=== PATIENT | male | born 1945 | race Hispanic/Latino ===

== ENCOUNTER 2020-03-07 08:46 | Emergency (ER) | payer MEDICARE ==
[2020-03-07] MEDS ORDERED: SODIUM CHLORIDE 0.9% 1000ML 1,000 ML IV ONE (09:06)
[2020-03-07 09:31] LABS: BASOPHILS % (AUTO) 0.3 % (0.0-5.0); EOSINOPHILS % (AUTO) 2.7 % (0.0-8.0); HEMATOCRIT 34.1 % (42-54); LYMPHOCYTES % (AUTO) 10.2 % (21.0-51.0); MEAN CORPUSCULAR HEMOGLOBIN 32.8 pg (27.0-33.0); MEAN CORPUSCULAR VOLUME 96.3 fL (79-99); MONOCYTES % (AUTO) 7.6 % (3.0-13.0); NEUTROPHILS % (AUTO) 78.9 % (40.0-77.0); PLATELET COUNT (AUTO) 169 K/uL (130-400); RED BLOOD CELL COUNT(AUTO) 3.54 MIL/uL (4.50-6.20); RED CELL DISTRIBUTION WIDTH 12.5 % (11.0-15.5)
[2020-03-07 09:47] LABS: ALBUMIN 3.4 g/dL (3.5-5.0); BILIRUBIN,TOTAL 0.5 mg/dL (0.2-1.0); CREATININE 1.7 mg/dL (0.5-1.5); POTASSIUM 3.6 mmol/L (3.5-5.1); TOTAL PROTEIN, SERUM 6.5 g/dL (6.0-8.3)
[2020-03-07 09:56] LABS: INR 1.05 (0.85-1.15); PROTHROMBIN TIME 11.3 SEC (9.6-11.6)
[2020-03-07 09:57] LABS: B-TYPE NATRIURETIC PEPTIDE 59 pg/mL (0-100)
[2020-03-07 09:58] LABS: PARTIAL THROMBOPLASTIN TIME 25.3 SEC (26.3-35.5)
[2020-03-07 10:26] LABS: APPEARANCE,URINE CLOUDY (CLEAR); BILIRUBIN,URINE NEGATIVE (NEGATIVE); COLOR,URINE YELLOW (YELLOW); GLUCOSE, URINE (UA) NEGATIVE (NEGATIVE); KETONES,URINE NEGATIVE (NEGATIVE); LEUKOCYTE ESTERASE ,URINE LARGE (NEGATIVE); NITRATE,URINE NEGATIVE (NEGATIVE); OCCULT BLOOD,URINE LARGE (NEGATIVE); PH,URINE 6.5 (5.0-8.0); PROTEIN,URINE 30 mg/dL (NEGATIVE); UROBILINOGEN,URINE 0.2 mg/dL (0.2-1.0)
[2020-03-07 10:47] LABS: BACTERIA,URINE Moderate /HPF (None Seen); SQUAMOUS EPITHELIAL CELL,UR 0-2 /HPF (0-2); WBC,URINE 26-50 /HPF (0-1)
[2020-03-07 10:51] LABS: MAGNESIUM 1.7 mg/dL (1.80-2.40); PHOSPHORUS 3.8 mg/dL (2.5-4.9)
[2020-03-07] MEDS ORDERED: MAGNESIUM OXIDE 400 MG TABLET PO ONE (11:40)
[2020-03-07] MEDS ORDERED: CALCIUM GLUCONATE 1 GM/10 ML VIAL IV ONE (13:05)
[2020-03-07] MEDS ORDERED: DEXTROSE 5%-WATER 50 ML IV ONE (13:06)
== END 2020-03-07 16:23 | disposition home or self-care (01) ==
LOC: EDH 08:46
DX: I95.1 Orthostatic hypotension (principal); E83.51 Hypocalcemia; E86.9 Volume depletion, unspecified; T83.098A Other mechanical complication of other urinary catheter, initial encounter; R82.81 Pyuria; R82.71 Bacteriuria; E11.9 Type 2 diabetes mellitus without complications; E78.00 Pure hypercholesterolemia, unspecified; Z87.891 Personal history of nicotine dependence
CPT/HCPCS: 36415; 70450; 71045; 80053; 81001; 82330; 82550; 83605; 83735; 83880; 84100; 84145; 84484; 85025; 85610; 85730; 87077; 87088; 87186; 93005; 96361; 96365; 96366; 99285; J0610; J7030; J7060

== ENCOUNTER 2020-05-20 12:44 | Inpatient (IN) | payer MEDICARE ==
[~2020-05-20] VITALS: Ht 172.7 cm; Wt 64.7 kg
[~2020-05-20 12:44] MED LIST: BENZ2TAB10 PO; CALC-17 PO; CARV12.580 PO; DOCU-280 PO; FERS325 PO; HALO5TAB2 PO; LEVO125 PO; OMEP40CA21 PO; PILOC5 PO; ROSU10TA28 PO; TAMS-1 PO; VITAD50000 PO
[2020-05-20] MEDS ORDERED: 0.9% NACL 250ML 500 ML IV ONE ×2 (13:37→15:02)
[2020-05-20 14:02] LABS: BASOPHILS % (AUTO) 0.3 % (0.0-5.0); EOSINOPHILS % (AUTO) 3.1 % (0.0-8.0); HEMATOCRIT 39.7 % (42-54); LYMPHOCYTES % (AUTO) 14.4 % (21.0-51.0); MEAN CORPUSCULAR HEMOGLOBIN 32.6 pg (27.0-33.0); MEAN CORPUSCULAR HGB CONC 33.8 g/dL (32.0-36.0); MEAN CORPUSCULAR VOLUME 96.6 fL (79-99); NEUTROPHILS % (AUTO) 73.9 % (40.0-77.0); PLATELET COUNT (AUTO) 162 K/uL (130-400); RED BLOOD CELL COUNT(AUTO) 4.11 MIL/uL (4.50-6.20); RED CELL DISTRIBUTION WIDTH 12.9 % (11.0-15.5); WHITE BLOOD COUNT (AUTO) 6.2 K/uL (4.8-10.8)
[2020-05-20 14:13] LABS: CREATININE 1.5 mg/dL (0.5-1.5); POTASSIUM 3.7 mmol/L (3.5-5.1)
[2020-05-20 14:19] LABS: ALBUMIN 3.7 g/dL (3.5-5.0); BILIRUBIN,TOTAL 0.5 mg/dL (0.2-1.0)
[2020-05-20 14:57] LABS: B-TYPE NATRIURETIC PEPTIDE 84 pg/mL (0-100)
[2020-05-20 18:59] LABS: APPEARANCE,URINE Clear (CLEAR); BILIRUBIN,URINE Negative (NEGATIVE); COLOR,URINE Yellow (YELLOW); GLUCOSE, URINE (UA) Negative (NEGATIVE); KETONES,URINE Negative (NEGATIVE); LEUKOCYTE ESTERASE ,URINE Negative (NEGATIVE); NITRATE,URINE Negative (NEGATIVE); OCCULT BLOOD,URINE Negative (NEGATIVE); PROTEIN,URINE Negative (NEGATIVE); UROBILINOGEN,URINE 0.2 mg/dL (0.2-1.0)
[2020-05-20] MEDS ORDERED: ACETAMINOPHEN 650 MG SUPPOSITORY RC PRN (20:45)
[2020-05-20] MEDS ORDERED: ACETAMINOPHEN 325 MG TAB PO PRN (20:45)
[2020-05-20] MEDS ORDERED: GLUCAGON 1MG KIT 1 MG ML IM PRN (20:45)
[2020-05-20] MEDS ORDERED: MORPHINE 2 MG SYG IVP PRN (20:45)
[2020-05-20] MEDS ORDERED: ONDANSETRON 4MG INJ IVP PRN (20:45)
[2020-05-20] MEDS ORDERED: DEXTROSE 50%-WATER 50 ML DISP.SYRIN IV PRN (20:45)
[2020-05-20 20:59] LABS: BASOPHILS % (AUTO) 0.5 % (0.0-5.0); EOSINOPHILS % (AUTO) 3.6 % (0.0-8.0); HEMATOCRIT 33.5 % (42-54); LYMPHOCYTES % (AUTO) 19.2 % (21.0-51.0); MEAN CORPUSCULAR HGB CONC 34.6 g/dL (32.0-36.0); MEAN CORPUSCULAR VOLUME 95.2 fL (79-99); MONOCYTES % (AUTO) 10.4 % (3.0-13.0); NEUTROPHILS % (AUTO) 66.1 % (40.0-77.0); PLATELET COUNT (AUTO) 135 K/uL (130-400); RED BLOOD CELL COUNT(AUTO) 3.52 MIL/uL (4.50-6.20); RED CELL DISTRIBUTION WIDTH 13.1 % (11.0-15.5); WHITE BLOOD COUNT (AUTO) 5.5 K/uL (4.8-10.8)
[2020-05-20] MEDS: INSULIN R PO SS1 SQ SCH (21:00)
[2020-05-21] VITALS (8 sets, daily range): BP systolic 137–180; BP diastolic 81–105
[2020-05-21] MEDS ORDERED: MORPHINE 2 MG SYG IVP PRN (00:45)
[2020-05-21 00:56] LABS: TROPONIN I 0.18 ng/mL (0.00-0.06)
[2020-05-21] MEDS ORDERED: CLOP75TA32 PO (02:21)
[2020-05-21] MEDS: INSULIN R PO SS1 SQ SCH ×4 (06:33→21:00)
[2020-05-21 07:48] LABS: BASOPHILS % (AUTO) 0.3 % (0.0-5.0); EOSINOPHILS % (AUTO) 4.3 % (0.0-8.0); HEMATOCRIT 35.2 % (42-54); LYMPHOCYTES % (AUTO) 16.3 % (21.0-51.0); MEAN CORPUSCULAR HEMOGLOBIN 33.3 pg (27.0-33.0); MEAN CORPUSCULAR HGB CONC 34.4 g/dL (32.0-36.0); MONOCYTES % (AUTO) 9.8 % (3.0-13.0); PLATELET COUNT (AUTO) 149 K/uL (130-400); RED BLOOD CELL COUNT(AUTO) 3.63 MIL/uL (4.50-6.20); WHITE BLOOD COUNT (AUTO) 6.3 K/uL (4.8-10.8)
[2020-05-21 08:32] LABS: CREATININE 1.4 mg/dL (0.5-1.5); MAGNESIUM 1.8 mg/dL (1.80-2.40); POTASSIUM 3.5 mmol/L (3.5-5.1); TROPONIN I 0.16 ng/mL (0.00-0.06)
[2020-05-21 08:41] LABS: HEMOGLOBIN A1C 5.5 % (4.0-6.0)
[2020-05-21] MEDS: ASPIRIN 81MG CHEW TAB PO SCH (08:45)
[2020-05-21] MEDS: ENOXAPARIN SODIUM 30 MG/0.3 ML SQ SCH (08:45)
[2020-05-21] MEDS ORDERED: LACTULOSE 20 GM/30 ML UDCUP ONE (20:52)
[2020-05-21] MEDS ORDERED: LACTULOSE 20 GM/30 ML UDCUP PO PRN (21:45)
[2020-05-22 03:57] VITALS: BP 140/98
[2020-05-22] MEDS: INSULIN R PO SS1 SQ SCH ×4 (06:21→19:38)
[2020-05-22 07:56] VITALS: BP 163/100
[2020-05-22] MEDS: ASPIRIN 81MG CHEW TAB PO SCH (10:24)
[2020-05-22] MEDS: ENOXAPARIN SODIUM 30 MG/0.3 ML SQ SCH (10:30)
[2020-05-22 11:00] VITALS: BP 152/107
[2020-05-22] MEDS ORDERED: ERGOCALCIFEROL (VITAMIN D2) 50,000 UNIT CAPSULE PO SCH (13:02)
[2020-05-22] MEDS: PANTOPRAZOLE 40 MG TAB DR PO SCH (13:39)
[2020-05-22] MEDS: BENZTROPINE 0.5MG TAB PO SCH (13:39)
[2020-05-22] MEDS: FERROUS SULFATE 325 MG TABLET.DR PO SCH (13:39)
[2020-05-22] MEDS: CALCIUM CARB 500MG PO SCH (17:42)
[2020-05-22] MEDS: HALOPERIDOL 5 MG TABLET PO SCH (17:42)
[2020-05-22 19:49] VITALS: BP 129/86
[2020-05-22] MEDS: CARVEDILOL 12.5 MG TABLET PO SCH (20:07)
[2020-05-22] MEDS: ATORVASTATIN 20 MG TABLET PO SCH (20:07)
[2020-05-22] MEDS: PILOCARPINE HCL 5 MG PO SCH (20:08)
[2020-05-22] MEDS ORDERED: TAMSULOSIN HCL 0.4 MG CAP.ER.24H PO SCH (21:00)
[2020-05-23] VITALS (7 sets, daily range): BP systolic 105–177; BP diastolic 54–99
[2020-05-23] MEDS: INSULIN R PO SS1 SQ SCH ×4 (05:38→21:00)
[2020-05-23 05:51] LABS: MEAN CORPUSCULAR HEMOGLOBIN 32.8 pg (27.0-33.0); MEAN CORPUSCULAR HGB CONC 34.4 g/dL (32.0-36.0); MEAN CORPUSCULAR VOLUME 95.2 fL (79-99); RED BLOOD CELL COUNT(AUTO) 3.57 MIL/uL (4.50-6.20); RED CELL DISTRIBUTION WIDTH 12.8 % (11.0-15.5); WHITE BLOOD COUNT (AUTO) 6.8 K/uL (4.8-10.8)
[2020-05-23 06:26] LABS: ALBUMIN 3.3 g/dL (3.5-5.0); BILIRUBIN,TOTAL 0.5 mg/dL (0.2-1.0); CREATININE 1.2 mg/dL (0.5-1.5); MAGNESIUM 1.9 mg/dL (1.80-2.40); TOTAL PROTEIN, SERUM 6.3 g/dL (6.0-8.3)
[2020-05-23] MEDS: PANTOPRAZOLE 40 MG TAB DR PO SCH (06:34)
[2020-05-23] MEDS: LEVOTHYROXINE 125 MCG TABLET PO SCH (08:00)
[2020-05-23] MEDS ORDERED: METOPROLOL TARTRATE 1 MG/ML 5ML VIAL IV ONE (08:42)
[2020-05-23] MEDS ORDERED: METOPROLOL TARTRATE 1 MG/ML 5ML VIAL IV SCH (08:45)
[2020-05-23] MEDS: CARVEDILOL 12.5 MG TABLET PO SCH ×2 (08:53→21:01)
[2020-05-23] MEDS: PILOCARPINE HCL 5 MG PO SCH ×2 (09:00→21:00)
[2020-05-23] MEDS: ASPIRIN 81MG CHEW TAB PO SCH (10:23)
[2020-05-23] MEDS: CLOPIDOGREL 75MG TAB PO SCH (10:23)
[2020-05-23] MEDS: DOCUSATE SODIUM 100 MG CAP PO SCH (10:23)
[2020-05-23] MEDS: FERROUS SULFATE 325 MG TABLET.DR PO SCH (10:23)
[2020-05-23] MEDS: BENZTROPINE 0.5MG TAB PO SCH (10:23)
[2020-05-23] MEDS: ENOXAPARIN SODIUM 30 MG/0.3 ML SQ SCH (10:24)
[2020-05-23] MEDS: HALOPERIDOL 5 MG TABLET PO SCH ×2 (10:26→18:10)
[2020-05-23] MEDS: CALCIUM CARB 500MG PO SCH ×2 (10:26→18:10)
[2020-05-23] MEDS ORDERED: POTASSIUM CHLORIDE 10% ELIXIR 20 MEQ/15 ML UDCUP PO PRN (10:30)
[2020-05-23] MEDS ORDERED: LIDOCAINE HCL-MPF 1% 2ML VIAL IV PRN (10:30)
[2020-05-23] MEDS: 0.9%NACL 1000ML 1,000 ML IV SCH ×2 (13:15→23:15)
[2020-05-23] MEDS ORDERED: MAGNESIUM 2GM PREMIX 50ML 50 ML IV SCH (13:15)
[2020-05-23] MEDS ORDERED: MAGNESIUM 2GM PREMIX 50ML 50 ML IV ONE (13:18)
[2020-05-23] MEDS: KCL 20 MEQ ERTAB PO PRN ×3 (13:22→18:10)
[2020-05-23] MEDS: POTASSIUM CHLORIDE 20MEQ/100ML 100 ML IV PRN (15:30)
[2020-05-23] MEDS ORDERED: PHARMACY COMMUNICATION MISC SCH (17:45)
[2020-05-23] MEDS ORDERED: AMIODARONE 150MG VIAL 300 MG in DEXTROSE 5%-WATER 100 ML IV SCH (18:15)
[2020-05-23] MEDS ORDERED: AMIODARONE 900MG VIAL 360 MG in DEXTROSE 5%-WATER 200 ML IV SCH (19:00)
[2020-05-23] MEDS: ATORVASTATIN 20 MG TABLET PO SCH (21:01)
[2020-05-24 03:23] VITALS: BP 156/99
[2020-05-24] MEDS: AMIODARONE 900MG VIAL 450 MG in DEXTROSE 5%-WATER 250 ML IV SCH ×2 (04:30→05:00)
[2020-05-24] MEDS: INSULIN R PO SS1 SQ SCH ×4 (05:41→20:13)
[2020-05-24 05:59] LABS: CREATININE 1.4 mg/dL (0.5-1.5); POTASSIUM 3.3 mmol/L (3.5-5.1)
[2020-05-24] MEDS: PANTOPRAZOLE 40 MG TAB DR PO SCH (06:24)
[2020-05-24] MEDS: KCL 20 MEQ ERTAB PO PRN (06:36)
[2020-05-24 07:45] VITALS: BP 161/96
[2020-05-24] MEDS: LEVOTHYROXINE 125 MCG TABLET PO SCH (07:45)
[2020-05-24] MEDS: DOCUSATE SODIUM 100 MG CAP PO SCH (07:46)
[2020-05-24] MEDS: PILOCARPINE HCL 5 MG PO SCH ×2 (09:00→21:49)
[2020-05-24] MEDS: 0.9%NACL 1000ML 1,000 ML IV SCH ×2 (09:49→18:27)
[2020-05-24] MEDS: CLOPIDOGREL 75MG TAB PO SCH (09:50)
[2020-05-24] MEDS: ASPIRIN 81MG CHEW TAB PO SCH (09:50)
[2020-05-24] MEDS: FERROUS SULFATE 325 MG TABLET.DR PO SCH (09:50)
[2020-05-24] MEDS: CARVEDILOL 12.5 MG TABLET PO SCH ×2 (09:50→21:49)
[2020-05-24] MEDS: HALOPERIDOL 5 MG TABLET PO SCH ×2 (09:50→16:38)
[2020-05-24] MEDS: BENZTROPINE 0.5MG TAB PO SCH (10:05)
[2020-05-24] MEDS: CALCIUM CARB 500MG PO SCH ×2 (10:05→16:38)
[2020-05-24] MEDS: ENOXAPARIN SODIUM 30 MG/0.3 ML SQ SCH (10:05)
[2020-05-24 11:43] VITALS: BP 131/78
[2020-05-24 15:57] VITALS: BP 153/88
[2020-05-24 20:20] VITALS: BP 148/96
[2020-05-24] MEDS: ATORVASTATIN 20 MG TABLET PO SCH (21:48)
[2020-05-24] MEDS: AMIODARONE 200 MG TABLET PO SCH (21:48)
[2020-05-25] VITALS: BP 153/99
[2020-05-25] MEDS: 0.9%NACL 1000ML 1,000 ML IV SCH ×2 (04:58→15:40)
[2020-05-25 05:16] LABS: HEMATOCRIT 34.4 % (42-54); MEAN CORPUSCULAR HEMOGLOBIN 32.2 pg (27.0-33.0); MEAN CORPUSCULAR VOLUME 94.8 fL (79-99); RED BLOOD CELL COUNT(AUTO) 3.63 MIL/uL (4.50-6.20)
[2020-05-25 05:30] LABS: CREATININE 1.3 mg/dL (0.5-1.5); MAGNESIUM 1.6 mg/dL (1.80-2.40)
[2020-05-25] MEDS: KCL 20 MEQ ERTAB PO PRN ×2 (06:18→08:48)
[2020-05-25] MEDS: PANTOPRAZOLE 40 MG TAB DR PO SCH (06:18)
[2020-05-25] MEDS: INSULIN R PO SS1 SQ SCH ×4 (06:24→20:31)
[2020-05-25 06:29] VITALS: BP 147/96
[2020-05-25 08:00] VITALS: BP 159/97
[2020-05-25] MEDS: LEVOTHYROXINE 125 MCG TABLET PO SCH (08:00)
[2020-05-25] MEDS: CARVEDILOL 12.5 MG TABLET PO SCH ×2 (08:46→20:00)
[2020-05-25] MEDS: ASPIRIN 81MG CHEW TAB PO SCH (08:47)
[2020-05-25] MEDS: HALOPERIDOL 5 MG TABLET PO SCH ×2 (08:47→17:22)
[2020-05-25] MEDS: BENZTROPINE 0.5MG TAB PO SCH (08:47)
[2020-05-25] MEDS: CALCIUM CARB 500MG PO SCH ×2 (08:47→17:23)
[2020-05-25] MEDS: CLOPIDOGREL 75MG TAB PO SCH (08:47)
[2020-05-25] MEDS: DOCUSATE SODIUM 100 MG CAP PO SCH (08:47)
[2020-05-25] MEDS: FERROUS SULFATE 325 MG TABLET.DR PO SCH (08:47)
[2020-05-25] MEDS: AMIODARONE 200 MG TABLET PO SCH ×2 (08:48→20:00)
[2020-05-25] MEDS: ENOXAPARIN SODIUM 30 MG/0.3 ML SQ SCH (08:49)
[2020-05-25] MEDS: PILOCARPINE HCL 5 MG PO SCH ×2 (08:54→20:00)
[2020-05-25 13:58] VITALS: BP 153/100
[2020-05-25] MEDS ORDERED: MAGNESIUM 4GM PREMIX 100ML 100 ML IV SCH (14:00)
[2020-05-25] MEDS: POTASSIUM CHLORIDE 20MEQ/100ML 100 ML IV PRN (15:59)
[2020-05-25 18:24] VITALS: BP 145/76
[2020-05-25] MEDS: ATORVASTATIN 20 MG TABLET PO SCH (20:00)
[2020-05-25 20:11] VITALS: BP 155/99
[2020-05-25] MEDS ORDERED: TAMSULOSIN HCL 0.4 MG CAP.ER.24H PO SCH (21:00)
[2020-05-26 00:10] VITALS: BP 114/74
[2020-05-26] MEDS: 0.9%NACL 1000ML 1,000 ML IV SCH ×2 (01:15→11:15)
[2020-05-26 04:29] VITALS: BP 160/97
[2020-05-26 05:35] LABS: CREATININE 1.3 mg/dL (0.5-1.5); MAGNESIUM 2.2 mg/dL (1.80-2.40)
[2020-05-26 05:44] LABS: POTASSIUM 2.9 mmol/L (3.5-5.1)
[2020-05-26] MEDS: INSULIN R PO SS1 SQ SCH ×3 (06:17→16:22)
[2020-05-26] MEDS: PANTOPRAZOLE 40 MG TAB DR PO SCH (06:55)
[2020-05-26] MEDS: KCL 20 MEQ ERTAB PO PRN ×3 (06:56→11:44)
[2020-05-26] MEDS: LEVOTHYROXINE 125 MCG TABLET PO SCH (08:00)
[2020-05-26 08:20] VITALS: BP 153/98
[2020-05-26] MEDS: BENZTROPINE 0.5MG TAB PO SCH (08:56)
[2020-05-26] MEDS: AMIODARONE 200 MG TABLET PO SCH (08:56)
[2020-05-26] MEDS: ASPIRIN 81MG CHEW TAB PO SCH (08:56)
[2020-05-26] MEDS: CALCIUM CARB 500MG PO SCH ×2 (08:57→17:19)
[2020-05-26] MEDS: CLOPIDOGREL 75MG TAB PO SCH (08:57)
[2020-05-26] MEDS: HALOPERIDOL 5 MG TABLET PO SCH ×2 (08:57→17:19)
[2020-05-26] MEDS: CARVEDILOL 12.5 MG TABLET PO SCH (08:57)
[2020-05-26] MEDS: DOCUSATE SODIUM 100 MG CAP PO SCH (08:57)
[2020-05-26] MEDS: FERROUS SULFATE 325 MG TABLET.DR PO SCH (08:57)
[2020-05-26] MEDS: POTASSIUM CHLORIDE 20MEQ/100ML 100 ML IV PRN (08:58)
[2020-05-26] MEDS: ENOXAPARIN SODIUM 30 MG/0.3 ML SQ SCH (08:58)
[2020-05-26] MEDS: PILOCARPINE HCL 5 MG PO SCH (09:00)
[2020-05-26 11:35] VITALS: BP 115/79
[2020-05-26] MEDS ORDERED: POTASSIUM CHLORIDE 10% ELIXIR 20 MEQ/15 ML UDCUP PO SCH (15:00)
[2020-05-26 16:36] VITALS: BP 171/79
[2020-05-30] MEDS ORDERED: AMIODARONE 200 MG TABLET PO SCH (09:00)
== END 2020-05-26 19:00 | disposition home or self-care (01) | DRG 312 ==
LOC: EDH 12:44 → EDHIP 19:30 → 3DH 23:41 → 4CH 05-23 19:16
PROVIDERS: ADMIT Internal Medicine Infectious Disease; ATTEND Internal Medicine Infectious Disease
DX: R55 Syncope and collapse (principal); I48.92 Unspecified atrial flutter; E86.0 Dehydration; E11.9 Type 2 diabetes mellitus without complications; F79 Unspecified intellectual disabilities; N28.9 Disorder of kidney and ureter, unspecified; E03.9 Hypothyroidism, unspecified; E78.5 Hyperlipidemia, unspecified; E87.6 Hypokalemia; I10 Essential (primary) hypertension; I25.10 Atherosclerotic heart disease of native coronary artery without angina pectoris; I44.7 Left bundle-branch block, unspecified; N40.0 Benign prostatic hyperplasia without lower urinary tract symptoms; K21.9 Gastro-esophageal reflux disease without esophagitis; K59.09 Other constipation; R53.81 Other malaise; E78.00 Pure hypercholesterolemia, unspecified; Z83.3 Family history of diabetes mellitus; Z87.891 Personal history of nicotine dependence
CPT/HCPCS: 36415; 70450; 71045; 80048; 80053; 80061; 81003; 82550; 82948; 83036; 83690; 83735; 83874; 83880; 84132; 84484; 85025; 85027; 93005; G0378; J0282; J1650; J3475; J3480; J3490; J7030; J7050; J7060

== ENCOUNTER 2022-10-03 16:21 | Inpatient (IN) | payer MEDICARE ==
[~2022-10-03] VITALS: Ht 160 cm; Wt 77.7 kg
[~2022-10-03 16:21] MED LIST changes: -BENZ2TAB10 PO; +BENZ2TAB70 PO; +CLOP75TA32 PO
[2022-10-03 17:32] LABS: BASOPHILS % (AUTO) 0.7 % (0.0-5.0); EOSINOPHILS % (AUTO) 14.4 % (0.0-8.0); HEMATOCRIT 21.7 % (42-54); LYMPHOCYTES % (AUTO) 20.8 % (21.0-51.0); MEAN CORPUSCULAR HEMOGLOBIN 26.7 pg (27.0-33.0); MEAN CORPUSCULAR VOLUME 89.3 fL (79-99); MONOCYTES % (AUTO) 13.7 % (3.0-13.0); NEUTROPHILS % (AUTO) 49.9 % (40.0-77.0); PLATELET COUNT (AUTO) 206 K/uL (130-400); RED BLOOD CELL COUNT(AUTO) 2.43 MIL/uL (4.50-6.20); RED CELL DISTRIBUTION WIDTH 19.3 % (11.0-15.5); WHITE BLOOD COUNT (AUTO) 5.6 K/uL (4.8-10.8)
[2022-10-03 17:39] LABS: CREATININE 1.6 mg/dL (0.5-1.5); POTASSIUM 3.4 mmol/L (3.5-5.1)
[2022-10-03 17:44] LABS: ALBUMIN 3.2 g/dL (3.5-5.0); TOTAL PROTEIN, SERUM 6.2 g/dL (6.0-8.3)
[2022-10-03] MEDS ORDERED: CEFTRIAXONE 1G VIAL IVPB ONE (18:30)
[2022-10-03] MEDS ORDERED: IOHEXOL 350 MG/ML 100ML INFUS..BTL IV ONE (18:51)
[2022-10-03] MEDS ORDERED: 0.9%NACL 1000ML 1,000 ML IV ONE (21:28)
[2022-10-03 22:44] LABS: APPEARANCE,URINE CLEAR (CLEAR); BILIRUBIN,URINE NEGATIVE (NEGATIVE); COLOR,URINE COLORLESS (YELLOW); GLUCOSE, URINE (UA) NEGATIVE (NEGATIVE); KETONES,URINE NEGATIVE (NEGATIVE); LEUKOCYTE ESTERASE ,URINE NEGATIVE Leu/uL (NEGATIVE); NITRATE,URINE NEGATIVE (NEGATIVE); OCCULT BLOOD,URINE NEGATIVE (NEGATIVE); PH,URINE 7.5 (5.0-8.0); PROTEIN,URINE NEGATIVE (NEGATIVE); UROBILINOGEN,URINE 0.2 mg/dL (0.2-1.0)
[2022-10-03 22:48] LABS: CREATININE,URINE RANDOM 6 mg/dL (30-135); SODIUM,URINE RANDOM 101 mmol/l (40-220)
[2022-10-03] MEDS: 0.9%NACL 1000ML 1,000 ML IV SCH (23:42)
[2022-10-04 00:50] LABS: HEMATOCRIT 23.4 % (42-54)
[2022-10-04 02:38] LABS: HEMOGLOBIN A1C 5.1 % (4.0-6.0)
[2022-10-04] MEDS: 0.9%NACL 1000ML 1,000 ML IV SCH (04:13)
[2022-10-04 04:49] VITALS: BP 152/97
[2022-10-04] MEDS: INSULIN LISPRO 100 UNIT/ML 3ML SQ SCH ×4 (06:25→21:00)
[2022-10-04 07:30] LABS: BASOPHILS % (AUTO) 0.7 % (0.0-5.0); EOSINOPHILS % (AUTO) 8.8 % (0.0-8.0); HEMATOCRIT 25.7 % (42-54); LYMPHOCYTES % (AUTO) 14.2 % (21.0-51.0); MEAN CORPUSCULAR HEMOGLOBIN 27.2 pg (27.0-33.0); MEAN CORPUSCULAR VOLUME 90.8 fL (79-99); MONOCYTES % (AUTO) 9.9 % (3.0-13.0); NEUTROPHILS % (AUTO) 65.7 % (40.0-77.0); PLATELET COUNT (AUTO) 238 K/uL (130-400); RED BLOOD CELL COUNT(AUTO) 2.83 MIL/uL (4.50-6.20); RED CELL DISTRIBUTION WIDTH 18.5 % (11.0-15.5); WHITE BLOOD COUNT (AUTO) 7.3 K/uL (4.8-10.8)
[2022-10-04 07:41] LABS: CREATININE 1.3 mg/dL (0.5-1.5); MAGNESIUM 1.7 mg/dL (1.80-2.40); PHOSPHORUS 3.8 mg/dL (2.5-4.9)
[2022-10-04 07:57] LABS: INR 1.05 (0.85-1.15); PROTHROMBIN TIME 11.4 SEC (9.6-11.6)
[2022-10-04 08:00] VITALS: BP 157/96
[2022-10-04 08:13] LABS: % IRON SATURATION 11.5 % (30-44)
[2022-10-04 08:23] LABS: POTASSIUM 2.9 mmol/L (3.5-5.1)
[2022-10-04] MEDS: POTASSIUM CHLORIDE 20MEQ/100ML 100 ML IV PRN ×2 (09:40→13:10)
[2022-10-04] MEDS: FAMOTIDINE 20MG VIAL IV SCH (09:40)
[2022-10-04 11:58] LABS: HEMATOCRIT 24.5 % (42-54)
[2022-10-04 12:00] VITALS: BP 154/84
[2022-10-04] MEDS: MAGNESIUM 2GM PREMIX 50ML 50 ML IV PRN (13:26)
[2022-10-04 16:00] VITALS: BP 155/86
[2022-10-04] MEDS ORDERED: BISACODYL 10 MG SUPP.RECT RC ONE (17:00)
[2022-10-04] MEDS: DEXTROSE 5 %-0.45 % NACL 1,000 ML IV SCH ×2 (17:00→18:32)
[2022-10-04 20:14] VITALS: BP 154/84
[2022-10-05 00:23] VITALS: BP 155/94
[2022-10-05 04:59] VITALS: BP 147/100
[2022-10-05 05:18] LABS: BASOPHILS % (AUTO) 0.5 % (0.0-5.0); EOSINOPHILS % (AUTO) 8.4 % (0.0-8.0); HEMATOCRIT 24.4 % (42-54); LYMPHOCYTES % (AUTO) 9.8 % (21.0-51.0); MEAN CORPUSCULAR HEMOGLOBIN 27.7 pg (27.0-33.0); MEAN CORPUSCULAR HGB CONC 31.1 g/dL (32.0-36.0); MEAN CORPUSCULAR VOLUME 89.1 fL (79-99); MONOCYTES % (AUTO) 10.1 % (3.0-13.0); NEUTROPHILS % (AUTO) 70.7 % (40.0-77.0); PLATELET COUNT (AUTO) 190 K/uL (130-400); RED BLOOD CELL COUNT(AUTO) 2.74 MIL/uL (4.50-6.20); RED CELL DISTRIBUTION WIDTH 18.5 % (11.0-15.5); WHITE BLOOD COUNT (AUTO) 7.9 K/uL (4.8-10.8)
[2022-10-05] MEDS: AMLODIPINE 5 MG TAB PO SCH ×2 (05:24→09:13)
[2022-10-05 05:46] LABS: CREATININE 1.2 mg/dL (0.5-1.5); POTASSIUM 3.2 mmol/L (3.5-5.1); TOTAL PROTEIN, SERUM 6.1 g/dL (6.0-8.3)
[2022-10-05] MEDS: INSULIN LISPRO 100 UNIT/ML 3ML SQ SCH ×4 (06:54→19:54)
[2022-10-05 08:00] VITALS: BP 170/96
[2022-10-05] MEDS: FAMOTIDINE 20MG VIAL IV SCH (09:13)
[2022-10-05 12:00] VITALS: BP 146/99
[2022-10-05] MEDS ORDERED: HYDRALAZINE 20MG/ML VIAL IV PRN (12:00)
[2022-10-05] MEDS: HYDRALAZINE 25MG TABLET PO SCH ×2 (14:01→19:59)
[2022-10-05 16:00] VITALS: BP 153/100
[2022-10-05] MEDS ORDERED: KCL 20 MEQ ERTAB PO PRN (16:00)
[2022-10-05] MEDS ORDERED: FOLI1 PO (16:19)
[2022-10-05] MEDS ORDERED: PILO5POW2 MC (16:19)
[2022-10-05] MEDS ORDERED: ATOR10 PO (16:19)
[2022-10-05] MEDS ORDERED: SUCR1TAB2 PO (16:19)
[2022-10-05] MEDS ORDERED: MULT-1367 PO (16:19)
[2022-10-05] MEDS ORDERED: OLAN10TA3 PO (16:19)
[2022-10-05] MEDS ORDERED: [UNRECOGNIZED DRUG - CODE] PO (16:19)
[2022-10-05] MEDS ORDERED: METO50TA18 PO (16:19)
[2022-10-05] MEDS ORDERED: IBUP-2784 PO (16:19)
[2022-10-05] MEDS ORDERED: CALC0.253 PO (16:19)
[2022-10-05] MEDS ORDERED: MELA1TAB28 PO (16:19)
[2022-10-05] MEDS ORDERED: CALC-125 PO (16:19)
[2022-10-05] MEDS ORDERED: FAMO-136 PO (16:19)
[2022-10-05] MEDS: SUCRALFATE 1 GM TABLET PO SCH (17:03)
[2022-10-05] MEDS: CALCIUM CARB 500MG PO SCH ×2 (17:03→19:59)
[2022-10-05] MEDS: CALCITRIOL 0.25 MCG CAP PO SCH (19:57)
[2022-10-05] MEDS: PILOCARPINE HCL 5 MG TABLET PO SCH (19:57)
[2022-10-05] MEDS: IBUPROFEN 200 MG TAB PO SCH (19:57)
[2022-10-05] MEDS: METOPROLOL TARTRATE 50 MG TAB PO SCH (19:57)
[2022-10-05] MEDS: TAMSULOSIN HCL 0.4 MG CAP.ER.24H PO SCH (19:57)
[2022-10-05] MEDS: ATORVASTATIN 10 MG TABLET PO SCH (19:57)
[2022-10-05 20:00] VITALS: BP 153/88
[2022-10-05] MEDS: Melatonin/Pyridoxine HCl (B6) (Melatonin 3 mg Tablet) PO SCH (20:18)
[2022-10-05] MEDS ORDERED: IRON SUCROSE COMPLEX 300 MG in 0.9% NACL 250ML 250 ML IV SCH (21:00)
[2022-10-05] MEDS ORDERED: PILOCARPINE HCL MC SCH (21:00)
[2022-10-06] VITALS: BP 155/86
[2022-10-06 04:00] VITALS: BP 137/99
[2022-10-06] MEDS: CALCIUM CARB 500MG PO SCH ×4 (04:47→22:03)
[2022-10-06 05:11] LABS: BASOPHILS % (AUTO) 0.9 % (0.0-5.0); EOSINOPHILS % (AUTO) 10.7 % (0.0-8.0); HEMATOCRIT 25.2 % (42-54); LYMPHOCYTES % (AUTO) 15.3 % (21.0-51.0); MEAN CORPUSCULAR HEMOGLOBIN 27.1 pg (27.0-33.0); MEAN CORPUSCULAR HGB CONC 30.2 g/dL (32.0-36.0); MONOCYTES % (AUTO) 11.5 % (3.0-13.0); NEUTROPHILS % (AUTO) 61.1 % (40.0-77.0); PLATELET COUNT (AUTO) 201 K/uL (130-400); RED CELL DISTRIBUTION WIDTH 18.6 % (11.0-15.5); WHITE BLOOD COUNT (AUTO) 6.6 K/uL (4.8-10.8)
[2022-10-06 05:41] LABS: ALBUMIN 2.9 g/dL (3.5-5.0); CREATININE 1.2 mg/dL (0.5-1.5); MAGNESIUM 1.8 mg/dL (1.80-2.40); PHOSPHORUS 3.2 mg/dL (2.5-4.9); POTASSIUM 3.1 mmol/L (3.5-5.1); TOTAL PROTEIN, SERUM 5.9 g/dL (6.0-8.3)
[2022-10-06] MEDS: INSULIN LISPRO 100 UNIT/ML 3ML SQ SCH ×4 (06:31→20:13)
[2022-10-06] MEDS: SUCRALFATE 1 GM TABLET PO SCH ×3 (06:34→18:11)
[2022-10-06] MEDS: POTASSIUM CHLORIDE 10% ELIXIR 20 MEQ/15 ML UDCUP PO PRN ×3 (06:34→12:42)
[2022-10-06] MEDS: LEVOTHYROXINE 125 MCG TABLET PO SCH (06:34)
[2022-10-06] MEDS: MAGNESIUM 2GM PREMIX 50ML 50 ML IV PRN (06:35)
[2022-10-06 08:00] VITALS: BP 146/99
[2022-10-06] MEDS ORDERED: NON-FORMULARY MEDICATION 1 EACH (Ferrous Sulfate 325 MG) PO SCH (09:00)
[2022-10-06] MEDS ORDERED: NON-FORMULARY MEDICATION 1 EACH (Multivitamin 1 EACH) PO SCH (09:00)
[2022-10-06] MEDS ORDERED: MECOBALAMIN 1000 MCG PO SCH (09:00)
[2022-10-06] MEDS: BENZTROPINE MESYLATE 2 MG PO SCH (09:00)
[2022-10-06] MEDS: FAMOTIDINE 20MG VIAL IV SCH (09:00)
[2022-10-06] MEDS ORDERED: OLANZAPINE 10 MG PO SCH (09:00)
[2022-10-06 09:23] LABS: RETICULOCYTE % (AUTO) 2.04 % (0.42-2.23)
[2022-10-06] MEDS ORDERED: IPRATROPIUM 0.5 MG/2.5 ML INH IH ONE (09:30)
[2022-10-06] MEDS: CYANOCOBALAMIN (VITAMIN B-12) 1,000 MCG TABLET PO SCH (10:02)
[2022-10-06] MEDS: HYDRALAZINE 25MG TABLET PO SCH ×3 (10:02→19:36)
[2022-10-06] MEDS: OLANZAPINE 5 MG TAB PO SCH (10:02)
[2022-10-06] MEDS: CLOPIDOGREL 75MG TAB PO SCH (10:03)
[2022-10-06] MEDS: PILOCARPINE HCL 5 MG TABLET PO SCH ×2 (10:03→19:34)
[2022-10-06] MEDS: FERROUS SULFATE 325 MG TABLET.DR PO SCH (10:03)
[2022-10-06] MEDS: AMLODIPINE 5 MG TAB PO SCH (10:03)
[2022-10-06] MEDS: DOCUSATE SODIUM 100 MG CAP PO SCH (10:03)
[2022-10-06] MEDS: MULTIVITAMIN TABLET PO SCH (10:03)
[2022-10-06] MEDS: IBUPROFEN 200 MG TAB PO SCH ×2 (10:03→19:34)
[2022-10-06] MEDS: FAMOTIDINE 20MG TAB PO SCH (10:03)
[2022-10-06] MEDS: METOPROLOL TARTRATE 50 MG TAB PO SCH ×2 (10:03→19:34)
[2022-10-06] MEDS: FOLIC ACID 1 MG TABLET PO SCH (10:03)
[2022-10-06] MEDS: CALCITRIOL 0.25 MCG CAP PO SCH ×2 (10:04→19:34)
[2022-10-06 11:46] VITALS: BP 153/94
[2022-10-06 15:51] VITALS: BP 152/92
[2022-10-06 15:58] LABS: % IRON SATURATION 93.3 % (30-44)
[2022-10-06] MEDS: ATORVASTATIN 10 MG TABLET PO SCH (19:34)
[2022-10-06] MEDS: TAMSULOSIN HCL 0.4 MG CAP.ER.24H PO SCH (19:34)
[2022-10-06] MEDS: Melatonin/Pyridoxine HCl (B6) (Melatonin 3 mg Tablet) PO SCH (19:35)
[2022-10-06 20:00] VITALS: BP 149/92
[2022-10-07] VITALS: BP 150/90
[2022-10-07 04:00] VITALS: BP 155/91
[2022-10-07] MEDS: CALCIUM CARB 500MG PO SCH ×4 (04:28→22:50)
[2022-10-07 04:44] LABS: HEMATOCRIT 25.5 % (42-54); MEAN CORPUSCULAR HEMOGLOBIN 27.3 pg (27.0-33.0); MEAN CORPUSCULAR HGB CONC 30.6 g/dL (32.0-36.0); MEAN CORPUSCULAR VOLUME 89.2 fL (79-99); NUCLEATED RED BLOOD CELLS 0.3 % (0.0-0.19); PLATELET COUNT (AUTO) 192 K/uL (130-400); RED BLOOD CELL COUNT(AUTO) 2.86 MIL/uL (4.50-6.20); RED CELL DISTRIBUTION WIDTH 18.8 % (11.0-15.5); WHITE BLOOD COUNT (AUTO) 6.3 K/uL (4.8-10.8)
[2022-10-07] MEDS: INSULIN LISPRO 100 UNIT/ML 3ML SQ SCH ×4 (05:11→20:26)
[2022-10-07 05:12] LABS: ALBUMIN 2.9 g/dL (3.5-5.0); CREATININE 1.2 mg/dL (0.5-1.5); POTASSIUM 3.1 mmol/L (3.5-5.1)
[2022-10-07] MEDS: LEVOTHYROXINE 125 MCG TABLET PO SCH (06:03)
[2022-10-07] MEDS: SUCRALFATE 1 GM TABLET PO SCH ×3 (06:03→17:37)
[2022-10-07] MEDS: POTASSIUM CHLORIDE 20MEQ/100ML 100 ML IV PRN ×2 (06:04→18:29)
[2022-10-07 06:29] LABS: EOSINOPHILS % (MANUAL) 14 % (1-6); LYMPHOCYTES % (MANUAL) 26 % (22-44); MONOCYTES % (MANUAL) 1 % (2-9); SEGMENTED NEUTROPHILS % 59 % (40-70)
[2022-10-07 06:30] LABS: MAN.DIFF COMMENT-IMPRESSION MANUAL DIFFERENTIAL; PLATELET MORPHOLOGY COMMENT ADEQUATE
[2022-10-07 08:00] VITALS: BP 157/97
[2022-10-07] MEDS: BENZTROPINE MESYLATE 2 MG PO SCH (09:00)
[2022-10-07] MEDS: CALCITRIOL 0.25 MCG CAP PO SCH ×2 (09:19→20:36)
[2022-10-07] MEDS: MULTIVITAMIN TABLET PO SCH (09:20)
[2022-10-07] MEDS: DOCUSATE SODIUM 100 MG CAP PO SCH (09:20)
[2022-10-07] MEDS: AMLODIPINE 5 MG TAB PO SCH (09:20)
[2022-10-07] MEDS: IBUPROFEN 200 MG TAB PO SCH ×2 (09:20→20:37)
[2022-10-07] MEDS: CLOPIDOGREL 75MG TAB PO SCH (09:20)
[2022-10-07] MEDS: FAMOTIDINE 20MG VIAL IV SCH (09:20)
[2022-10-07] MEDS: FERROUS SULFATE 325 MG TABLET.DR PO SCH (09:20)
[2022-10-07] MEDS: CYANOCOBALAMIN (VITAMIN B-12) 1,000 MCG TABLET PO SCH (09:20)
[2022-10-07] MEDS: FOLIC ACID 1 MG TABLET PO SCH (09:20)
[2022-10-07] MEDS: HYDRALAZINE 25MG TABLET PO SCH ×3 (09:21→20:34)
[2022-10-07] MEDS: FAMOTIDINE 20MG TAB PO SCH (09:21)
[2022-10-07] MEDS: OLANZAPINE 5 MG TAB PO SCH (09:21)
[2022-10-07] MEDS: PILOCARPINE HCL 5 MG TABLET PO SCH ×2 (09:21→20:34)
[2022-10-07] MEDS: METOPROLOL TARTRATE 50 MG TAB PO SCH ×2 (09:21→20:34)
[2022-10-07 11:51] VITALS: BP 135/82
[2022-10-07 15:58] VITALS: BP 140/88
[2022-10-07 20:00] VITALS: BP 150/93
[2022-10-07] MEDS: ATORVASTATIN 10 MG TABLET PO SCH (20:34)
[2022-10-07] MEDS: TAMSULOSIN HCL 0.4 MG CAP.ER.24H PO SCH (20:34)
[2022-10-07] MEDS: Melatonin/Pyridoxine HCl (B6) (Melatonin 3 mg Tablet) PO SCH (20:36)
[2022-10-08] VITALS: BP 153/87
[2022-10-08 04:00] VITALS: BP 153/87
[2022-10-08] MEDS: CALCIUM CARB 500MG PO SCH ×3 (04:39→16:55)
[2022-10-08 05:03] LABS: CREATININE 1.3 mg/dL (0.5-1.5); POTASSIUM 3.6 mmol/L (3.5-5.1); TOTAL PROTEIN, SERUM 6.1 g/dL (6.0-8.3)
[2022-10-08] MEDS: INSULIN LISPRO 100 UNIT/ML 3ML SQ SCH ×3 (06:07→16:30)
[2022-10-08] MEDS: SUCRALFATE 1 GM TABLET PO SCH ×3 (06:12→16:55)
[2022-10-08] MEDS: LEVOTHYROXINE 125 MCG TABLET PO SCH (06:12)
[2022-10-08 08:00] VITALS: BP 135/88
[2022-10-08] MEDS: BENZTROPINE MESYLATE 2 MG PO SCH (09:00)
[2022-10-08] MEDS: FAMOTIDINE 20MG VIAL IV SCH (09:00)
[2022-10-08 09:01] LABS: BASOPHILS % (AUTO) 0.9 % (0.0-5.0); EOSINOPHILS % (AUTO) 11.7 % (0.0-8.0); HEMATOCRIT 30.3 % (42-54); LYMPHOCYTES % (AUTO) 15.1 % (21.0-51.0); MEAN CORPUSCULAR HEMOGLOBIN 27.3 pg (27.0-33.0); MEAN CORPUSCULAR HGB CONC 30.4 g/dL (32.0-36.0); MEAN CORPUSCULAR VOLUME 89.9 fL (79-99); MONOCYTES % (AUTO) 10.8 % (3.0-13.0); NEUTROPHILS % (AUTO) 60.9 % (40.0-77.0); PLATELET COUNT (AUTO) 217 K/uL (130-400); RED BLOOD CELL COUNT(AUTO) 3.37 MIL/uL (4.50-6.20); WHITE BLOOD COUNT (AUTO) 6.5 K/uL (4.8-10.8)
[2022-10-08] MEDS: IBUPROFEN 200 MG TAB PO SCH (09:23)
[2022-10-08] MEDS: METOPROLOL TARTRATE 50 MG TAB PO SCH (09:23)
[2022-10-08] MEDS: PILOCARPINE HCL 5 MG TABLET PO SCH (09:23)
[2022-10-08] MEDS: CYANOCOBALAMIN (VITAMIN B-12) 1,000 MCG TABLET PO SCH (09:24)
[2022-10-08] MEDS: FAMOTIDINE 20MG TAB PO SCH (09:24)
[2022-10-08] MEDS: MULTIVITAMIN TABLET PO SCH (09:24)
[2022-10-08] MEDS: DOCUSATE SODIUM 100 MG CAP PO SCH (09:24)
[2022-10-08] MEDS: AMLODIPINE 5 MG TAB PO SCH (09:24)
[2022-10-08] MEDS: OLANZAPINE 5 MG TAB PO SCH (09:24)
[2022-10-08] MEDS: HYDRALAZINE 25MG TABLET PO SCH ×2 (09:24→15:17)
[2022-10-08] MEDS: CALCITRIOL 0.25 MCG CAP PO SCH (09:24)
[2022-10-08] MEDS: FERROUS SULFATE 325 MG TABLET.DR PO SCH (09:24)
[2022-10-08] MEDS: FOLIC ACID 1 MG TABLET PO SCH (09:25)
[2022-10-08] MEDS: CLOPIDOGREL 75MG TAB PO SCH (09:25)
[2022-10-08 12:00] VITALS: BP 159/98
[2022-10-08] MEDS ORDERED: EPOETIN ALFA-EPBX (NON-ESRD) 10,000 UNIT/ML VIAL SQ SCH (13:30)
[2022-10-10] MEDS ORDERED: ERGOCALCIFEROL (VITAMIN D2) 50,000 UNIT CAPSULE PO SCH (09:00)
[2022-10-12] MEDS ORDERED: NON-FORMULARY MEDICATION 1 EACH (Cholecalciferol (Vitamin D3) 50,000 UNITS) PO SCH (09:00)
== END 2022-10-08 19:20 | DRG 378 ==
LOC: EDH 16:21 → EDHIP 22:15 → 4DH 10-04 03:01
PROVIDERS: ADMIT Hospitalist; ATTEND Hospitalist
PROC: 30233N1 Transfusion of Nonautologous Red Blood Cells into Peripheral Vein, Percutaneous Approach (ICD-10-PCS; principal; 2022-10-03)
DX: K92.2 Gastrointestinal hemorrhage, unspecified (principal); E87.0 Hyperosmolality and hypernatremia; N17.9 Acute kidney failure, unspecified; E87.1 Hypo-osmolality and hyponatremia; R47.01 Aphasia; D50.8 Other iron deficiency anemias; Z20.822 Contact with and (suspected) exposure to COVID-19; I12.9 Hypertensive chronic kidney disease with stage 1 through stage 4 chronic kidney disease, or unspecified chronic kidney disease; N18.9 Chronic kidney disease, unspecified; E11.22 Type 2 diabetes mellitus with diabetic chronic kidney disease; D63.8 Anemia in other chronic diseases classified elsewhere; E66.9 Obesity, unspecified; E78.5 Hyperlipidemia, unspecified; E83.42 Hypomagnesemia; E87.6 Hypokalemia; I25.10 Atherosclerotic heart disease of native coronary artery without angina pectoris; R41.89 Other symptoms and signs involving cognitive functions and awareness; K56.41 Fecal impaction; N28.1 Cyst of kidney, acquired; K21.9 Gastro-esophageal reflux disease without esophagitis; G20 Parkinson's disease; F02.80 Dementia in other diseases classified elsewhere, unspecified severity, without behavioral disturbance, psychotic disturbance, mood disturbance, and anxiety; Z68.30 Body mass index [BMI] 30.0-30.9, adult
CPT/HCPCS: 36415; 71045; 74177; 80048; 80053; 81003; 82270; 82306; 82570; 82607; 82728; 82948; 83036; 83540; 83550; 83735; 83935; 84100; 84300; 85014; 85018; 85025; 85610; 85730; 86850; 86900; 86901; 86923; 87635; 92610; G0378; J0696; J1756; J3475; J3480; J3490; J7030; J7050; P9016; Q9967